=== PATIENT | female | born 1970 | race Caucasian/White ===

== ENCOUNTER 2017-03-04 23:06 | Emergency (ER) | payer SELFPAY ==
[~2017-03-04] VITALS: Ht 157.5 cm; Wt 86.0 kg
[~2017-03-04 23:06] MED LIST: HYDR28.340
[2017-03-04 23:09] VITALS: Ht 157.5 cm; Wt 86.0 kg
[2017-03-05] MEDS ORDERED: KETOROLAC 60 MG INJ IM STA (00:37)
--- NOTE | 2017-03-05 00:44 | ERD ---
ER Documentation Chief Complaint Chief Complaint urinary pain since saturday (FLAVIO VILLAVICENCIO) HPI 46-year-old female presents emergency department for dysuria since Saturday. Also complains of right-sided flank pain. Denies headache, dizziness, blurred vision, neck pain, shoulder pain, chest pain, back pain, abdominal pain, nausea , vomiting, constipation, diarrhea, or the possibility of being , trauma, injury, falls, loss of bowel and bladder control, difficulty walking, recent long travel, recent antibiotic use the last 3 months, fever, chills. (FLAVIO VILLAVICENCIO) ROS All systems reviewed and are negative except as per history of present illness. (FLAVIO VILLAVICENCIO) Medications Home Meds Active Scripts Hydrocodone/Acetaminophen (Laurens 5-325 Tablet) 1 Each Tablet, 1 TAB PO Q6H Y for SEVERE PAIN LEVEL 7-10, #20 TAB Prov:TASIA LAWRENCE NP 03/05/17 Ibuprofen* (Motrin*) 600 Mg Tab, 600 MG PO Q6H Y for PAIN AND OR ELEVATED TEMP, #30 TAB Prov:TASIA LAWRENCE NP 03/05/17 Ciprofloxacin Hcl* (Ciprofloxacin Hcl*) 500 Mg Tablet, 500 MG PO BID for 10 Days , TAB Prov:TASIA LAWRENCE NP 03/05/17 Phenazopyridine Hcl* (Pyridium*) 200 Mg Tab, 200 MG PO TID Y for URINARY PAIN, # 6 TAB Prov:TASIA LAWRENCE NP 03/05/17 Reported Medications Hydrocortisone* Topical (Hydrocortisone* Topical) 28.35 Gm Cr 01/24/11 Allergies Allergies: Coded Allergies: No Known Drug Allergy (Verified Allergy, Mild, 05/22/13) PMhx/Soc History of Surgery: Yes (CSECTION) Anesthesia Reaction: No Hx Neurological Disorder: No Hx Respiratory Disorders: No Hx Cardiac Disorders: No Hx Psychiatric Problems: No Hx Miscellaneous Medical Probl: No Hx Alcohol Use: No Hx Substance Use: No Hx Tobacco Use: No Smoking Status: Never smoker (FLAVIO VILLAVICENCIO) Physical Exam Vitals Vital Signs Date Time Temp Pulse Resp B/P Pulse Ox O2 Delivery O2 Flow Rate FiO2 03/04/17 23:09 98.0 82 20 157/107 97 (TASIA LAWRENCE NP) Physical Exam Const: Alert and oriented 4. Not in respiratory distress. Head: Atraumatic Eyes: Normal Conjunctiva ENT: Normal External Ears, Nose and Mouth. Neck: Full range of motion..~ No meningismus. Resp: Clear to auscultation bilaterally Cardio: Regular rate and rhythm, no murmurs Abd: Soft, non tender, non distended. Normal bowel sounds Skin: No petechiae or rashes Back: Has right-sided CVA tenderness. Ext: No cyanosis, or edema Neur: Awake and alert Psych: Normal Mood and Affect (FLAVIO VILLAVICENCIO) Result Diagram: 03/05/175703/05/178 Results 24 hrs Laboratory Tests Test 03/05/17 00:40 03/05/17 00:58 Urine Color YELLOW Urine Clarity SLIGHTLY CLOUDY Urine pH 5.0 Urine Specific [place] 1.010 Urine Ketones NEGATIVEmg/dL Urine Nitrite NEGATIVEmg/dL Urine Bilirubin NEGATIVEmg/dL Urine Urobilinogen NEGATIVEmg/dL Urine Leukocyte Esterase 3+Kam/ul Urine Microscopic RBC 7/HPF Urine Microscopic WBC > 182/HPF Urine Squamous Epithelial Cells FEW/HPF Urine Bacteria FEW/HPF Urine Hemoglobin 1+mg/dL Urine Glucose NEGATIVEmg/dL Urine Total Protein NEGATIVEmg/dl White Blood Count 10.410^3/ul Red Blood Count 4.7910^6/ul Hemoglobin 13.6g/dl Hematocrit 40.7% Mean Corpuscular Volume 85.0fl Mean Corpuscular Hemoglobin 28.4pg Mean Corpuscular Hemoglobin Concent 33.4g/dl Red Cell Distribution Width 12.6% Platelet Count 90799^3/UL Mean Platelet Volume 10.6fl Neutrophils % 58.1% Lymphocytes % 34.6% Monocytes % 4.5% Eosinophils % 2.3% Basophils % 0.3% Nucleated Red Blood Cells % 0.0/100WBC Neutrophils # 6.010^3/ul Lymphocytes # 3.610^3/ul Monocytes # 0.510^3/ul Eosinophils # 0.210^3/ul Basophils # 0.010^3/ul Nucleated Red Blood Cells # 0.010^3/ul Prothrombin Time 11.7Sec Prothrombin Time Ratio 0.9 INR International Normalized Ratio 0.86 Activated Partial Thromboplast Time 29.8Sec Sodium Level 143mmol/L Potassium Level 4.0mmol/L Chloride Level 105mmol/L Carbon Dioxide Level 27mmol/L Anion Gap 15 Blood Urea Nitrogen 14mg/dl Creatinine 0.76mg/dl Glucose Level 116mg/dl Calcium Level 9.8mg/dl Total Bilirubin 0.2mg/dl Direct Bilirubin 0.00mg/dl Indirect Bilirubin 0.2mg/dl Aspartate Amino Transf (AST/SGOT) 26IU/L Alanine Aminotransferase (ALT/SGPT) 26IU/L Alkaline Phosphatase 81IU/L Total Protein 8.0g/dl Albumin 4.4g/dl Globulin 3.60g/dl Albumin/Globulin Ratio 1.22 Amylase Level 63U/L Lipase 43U/L Serum HCG, Qualitative NEGATIVE Current Medications Medications (Trade) Dose Ordered Sig/Conrado Route PRN Reason Start Time Stop Time Status Last Admin Dose Admin Ketorolac Tromethamine (Toradol) 60 mg ONCE STAT IM 03/05/17 00:37 03/05/17 00:40 DC 03/05/17 01:06 PROCEDURE: CT Abdomen and Pelvis without contrast. CLINICAL INDICATION: Right-sided CVA tenderness. TECHNIQUE: A CT scan of the abdomen and pelvis was performed without intravenous contrast. Coronal and sagittal reformatted images were generated. DICOM images are available. Images were reviewed on a high-resolution PACS workstation. CTDIvol: 20.52 mGy. DLP: 1240.40 mGy-cm. One or more of the following dose reduction techniques were used: - Automated exposure control. - Adjustment of the mA and/or kV according to patient size. - Use of iterative reconstruction technique. COMPARISON: None. FINDINGS: The lung bases are clear. Evaluation of the abdominal and pelvic viscera is limited by the lack of oral and intravenous contrast. The right hepatic lobe is enlarged (19.1 cm), probably a Reidel's configuration. The gallbladder is normal in appearance. The common bile duct is not dilated. The spleen is not enlarged. No pancreatic lesion is identified and there is no pancreatic ductal dilatation. The adrenal glands are unremarkable. The kidneys are normal in size. There is no perinephric fat stranding. No hydronephrosis is seen. No urinary stone is identified. There is a 10 mm left renal cyst. The small and large bowel are normal in caliber. There is no bowel wall thickening. The appendix is normal. The urinary bladder is unremarkable. The pelvic organs are within normal limits. No lymphadenopathy is identified. There is no ascites. No pneumoperitoneum is seen. There are no arterial calcifications. No suspicious osseous lesion is idenitified. IMPRESSION: 1. No inflammation, mass, or lymphadenopathy. 2. No obstructive uropathy or urinary stone. 3. Normal appendix. RPTAT: HTAR .López Davey MD, MD Date Time Electronically viewed and signed by .López Davey MD, MD on 03/05/2017 03:02 .R/ CC: FLAVIO VILLAVICENCIO Signed out to me by Kavitha Villavicencio NP, namely CT scan abdomen and pelvis results, this is reviewed, no infected stones, no symptoms of any acute abdominal emergencies. Patient symptoms consistent with acute pyelonephritis. Patient was given IM Rocephin here in emergency department, tolerated medication well. Patient will be sent home with ciprofloxacin, Pyridium, ibuprofen and Laurens, is advised to follow-up with primary care doctor in 2-3 days, strict return to ER precautions for any worsening symptoms. Disposition: Home. Stable. (TASIA LAWRENCE NP) Procedures/MDM Urinalysis: UTI. Culture urine: Awaiting for results. Serum : Negative. Blood works: Reviewed. CT of the abdomen and pelvis without IV contrast: awaiting to be done. Treatment: Toradol IM. Differential diagnosis includes but not limited to nephrolithiasis versus pyelonephritis versus hydronephrosis versus pancreatitis versus urinary tract infection versus musculoskeletal spasm Final diagnosis: Flank pain with urinary symptoms. Endorsed with Tasia GOELC (FLAVIO VILLAVICENCIO) FLAVIO VILLAVICENCIO Mar 05, 2017 00:44 TASIA LAWRENCE NP Mar 05, 2017 03:06
[2017-03-05 01:08] LABS: BASOPHILS % 0.3 % (0.0-2.0); EOSINOPHILS # 0.2 10^3/ul (0.0-0.5); EOSINOPHILS % 2.3 % (0.0-7.0); HEMATOCRIT 40.7 % (37.0-47.0); HEMOGLOBIN 13.6 g/dl (12.0-16.0); LYMPHOCYTES # 3.6 10^3/ul (0.8-2.9); LYMPHOCYTES % 34.6 % (15.0-51.0); MEAN CORPUSCULAR HEMOGLOBIN 28.4 pg (29.0-33.0); MEAN CORPUSCULAR HGB CONC 33.4 g/dl (32.0-37.0); MEAN PLATELET VOLUME 10.6 fl (7.4-10.4); MONOCYTE # 0.5 10^3/ul (0.3-0.9); MONOCYTES % 4.5 % (0.0-11.0); NEUTROPHILS % 58.1 % (39.0-77.0); PLATELET COUNT 209 10^3/UL (140-415); RED BLOOD COUNT 4.79 10^6/ul (4.20-5.40); RED CELL DISTRIBUTION WIDTH 12.6 % (11.5-14.5); WHITE BLOOD COUNT 10.4 10^3/ul (4.8-10.8)
[2017-03-05 01:23] LABS: ADD UMIC YES; UR ASCORBIC ACID NEGATIVE (NEGATIVE); UR BACTERIA FEW /HPF (NONE SEEN); UR BILIRUBIN (Dip) NEGATIVE (NEGATIVE); UR BLOOD (Dip) 1+ mg/dL (NEGATIVE); UR CLARITY SLIGHTLY CLOUDY (CLEAR); UR COLOR YELLOW (YELLOW); UR GLUCOSE (Dip) NEGATIVE (NEGATIVE); UR KETONES (Dip) NEGATIVE (NEGATIVE); UR LEUKOCYTE ESTERASE (Dip) 3+ Leu/ul (NEGATIVE); UR NITRITE (Dip) NEGATIVE (NEGATIVE); UR RBC 7 /HPF (0-5); UR SQUAMOUS EPITHELIAL CELL FEW /HPF (FEW); UR TOTAL PROTEIN (Dip) NEGATIVE (NEGATIVE); UR UROBILINOGEN (Dip) NEGATIVE (NEGATIVE)
[2017-03-05 01:31] LABS: INR 0.86; PARTIAL THROMBOPLASTIN TIME 29.8 Sec (25.0-35.0); PROTIME 11.7 Sec (12.2-14.2); PT RATIO 0.9
[2017-03-05 01:33] LABS: ALBUMIN 4.4 g/dl (3.3-4.9); ALBUMIN/GLOBULIN RATIO 1.22; BILIRUBIN,INDIRECT 0.2 mg/dl (0-1.1); BILIRUBIN,TOTAL 0.2 mg/dl (0.2-1.3); CALCIUM 9.8 mg/dl (8.4-10.2); CREATININE 0.76 mg/dl (0.44-1.00)
--- NOTE | 2017-03-05 03:02 | RADRPT ---
PROCEDURE: CT Abdomen and Pelvis without contrast. CLINICAL INDICATION: Right-sided CVA tenderness. TECHNIQUE: A CT scan of the abdomen and pelvis was performed without intravenous contrast. [place] l and sagittal reformatted images were generated. DICOM images are available. Images were reviewed o n a high-resolution PACS workstation. CTDIvol: 20.52 mGy. DLP: 1240.40 mGy-cm. One or more of the following dose reduction techniques were used: - Automated exposure control. - Adjustment of the mA and/or kV according to patient size. - Use of iterative reconstruction technique. COMPARISON: None. FINDINGS: The lung bases are clear. Evaluation of the abdominal and pelvic viscera is limited by the lack of oral and intravenous contra st. The right hepatic lobe is enlarged (19.1 cm), probably a Reidel's configuration. The gallbladder is normal in appearance. The common bile duct is not dilated. The spleen is not enlarged. No pancreati c lesion is identified and there is no pancreatic ductal dilatation. The adrenal glands are unremark able. The kidneys are normal in size. There is no perinephric fat stranding. No hydronephrosis is seen. No urinary stone is identified. There is a 10 mm left renal cyst. The small and large bowel are normal in caliber. There is no bowel wall thickening. The appendix is normal. The urinary bladder is unremarkable. The pelvic organs are within normal limits. No lymphadenopathy is identified. There is no ascites. No pneumoperitoneum is seen. There are no art erial calcifications. No suspicious osseous lesion is idenitified. IMPRESSION: 1. No inflammation, mass, or lymphadenopathy. 2. No obstructive uropathy or urinary stone. 3. Normal appendix. RPTAT: HTAR .López Davey MD, Date Time Electronically viewed and signed by .López Davey MD, on 03/05/2017 03:02 .R/
[2017-03-05] MEDS ORDERED: CIPR500T4 PO (03:07)
[2017-03-05] MEDS ORDERED: IBUP-1542 PO (03:07)
[2017-03-05] MEDS ORDERED: PHEN-538 PO (03:07)
[2017-03-05] MEDS ORDERED: HYDR-906 PO (03:07)
[2017-03-05] MEDS ORDERED: CEFTRIAXONE 1 GM INJ ONE (03:14)
[2017-03-05] MEDS ORDERED: CEFTRIAXONE 1 GM INJ IM ONE (03:30)
== END 2017-03-05 03:35 | disposition home or self-care (01) ==
LOC: FTE 23:06
DX: N39.0 Urinary tract infection, site not specified (principal); R10.2 Pelvic and perineal pain
CPT/HCPCS: 74176; 80053; 81001; 82150; 83690; 84703; 85025; 85610; 85730; 87086; J0696; J1885; 96372